=== PATIENT | female | born 1995 | race Two or more races ===

== ENCOUNTER 2020-02-17 18:50 | Emergency (ER) | payer OTHER ==
[~2020-02-17] VITALS: Ht 157.5 cm; Wt 53.5 kg
--- OUTSIDE RECORDS SUMMARY | ~2020-02-17 | XMS | Encounter Summary ---
Demographics + + + | Address | NEED ADDRESS | | | [place] [address] | + + + | Home Phone | | + + + | Preferred Language | Unknown | + + + | Marital Status | Single | + + + | Taoist Affiliation | Unknown | + + + | Race | Unknown | + + + | Ethnic Group | Unknown | + + + Author + + + | Author | [facility] | | | and [place] | + + + | Organization | [facility] | | | and [place] | + + + | Address | Unknown | + + + | Phone | Unavailable | + + + Support + + +---------+ + | Name | Relationship | Address | Phone | + + +---------+ + | Becky Torres | ECON | Unknown | | + + +---------+ + Care Team Providers + +------+ + | Care Wood Tool Maker Name | Role | Phone | + +------+ + PCP | Unavailable | + +------+ + Encounter Details +--------+ + + + + | Date | Type | Department | Care Team | Description | +--------+ + + + + | 02/19/ | Hospital | [facility] | Elmer Galeana | Gloria; | | 2018 | Encounter | [facility] JONATHAN Schmid MD [address] | Constipation, | | | | INTRA OP [address] | [place] [address] | unspecified | | | | [address]VD [place], [place] | [phone] | constipation type; | | | | [phone] | | Positive FIT (fecal | | | | [phone] | | immunochemical | | | | | | test); Epigastric | | | | | | abdominal pain; | | | | | | Bilious vomiting | | | | | | with nausea; | | | | | | Constipation; | | | | | | Gastroesophageal | | | | | | reflux disease, | | | | | | esophagitis presence | | | | | | not specified | +--------+ + + + + Social History + +-------+ +--------+------+ | Tobacco Use | Types | Packs/Day | Years | Date | | | | | Used | | + +-------+ +--------+------+ | Never Assessed | | | | | + +-------+ +--------+------+ + + + | Sex Assigned at | Date Recorded | | | | + + + | Not on file | | + + + documented as of this encounter Last Filed Vital Signs + + + + + | Vital Sign | Reading | Time Taken | Comments | + + + + + | Blood Pressure | 93/62 | 02/19/2018 10:31 AM | | | | | PDT | | + + + + + | Pulse | 73 | 02/19/2018 10:31 AM | | | | | PDT | | + + + + + | Temperature | 36.2 C (97.2 F) | 02/19/2018 10:31 AM | | | | | PDT | | + + + + + | Respiratory Rate | 16 | 02/19/2018 10:31 AM | | | | | PDT | | + + + + + | Oxygen Saturation | - | - | | + + + + + | Inhaled Oxygen | - | - | | | Concentration | | | | + + + + + | Weight | 55.8 kg (123 lb 0.3 | 02/19/2018 10:31 AM | | | | oz) | PDT | | + + + + + | Height | 157.5 cm (5' 2") | 02/19/2018 10:31 AM | | | | | PDT | | + + + + + | Body Mass Index | 22.5 | 02/19/2018 10:31 AM | | | | | PDT | | + + + + + documented in this encounter Discharge Summaries Elmer Galeana MD - 02/19/2018 9:59 AM PDT Discharge Summaries by Elmer Galeana MD at 02/19/18958 Author: Elmer Galeana MD Service: Gastroenterology Author Type: Physician Filed: 02/19/18958 Date of Service: 02/19/18958 Status: Signed Fixed Income Portfolio Manager: Elmer Galeana MD (Physician) [facility] Service: Gastroenterology Brief Post-op Discharge Note DISCHARGE DIAGNOSES: Active Problems: Melena Epigastric abdominal pain Positive FIT (fecal immunochemical test) Bilious vomiting with nausea Constipation Gastroesophageal reflux disease Resolved Problems: * No resolved hospital problems. * Procedures: Procedure(s): COLONOSCOPY W/ EGD This patient was transferred to the recovery area post-operatively and has experienced no d ifficulties at the time of my assessment. The patient is anticipated to continue to meet di scharge criteria per protocol as assessed by nursing and may be discharged at that time with designated caregiver. Disposition: Home Condition: Good Follow up: With GI clinic Medication List CONTINUE taking these medications albuterol 108 (90 Base) MCG/ACT inhaler Refills: 0 Commonly known as: PROVENTIL HFA;VENTOLIN HFA benzonatate 100 MG capsule Refills: 0 Commonly known as: TESSALON diphenhydrAMINE 25 mg capsule Refills: 0 Commonly known as: BENADRYL Naproxen Sodium 220 MG Caps Refills: 0 ondansetron 4 MG disintegrating tablet QTY: 30 tablet Refills: 11 For diagnoses: Epigastric abdominal pain, Bilious vomiting with nausea Commonly known as: ZOFRAN-ODT Take 1 tablet by mouth every 8 (eight) hours as needed for Nausea. pantoprazole 40 MG tablet QTY: 60 tablet Refills: 11 For diagnoses: Epigastric abdominal pain, Melena Commonly known as: PROTONIX Take 1 tablet by mouth 2 (two) times daily. predniSONE 20 MG tablet Refills: 0 Commonly known as: DELTASONE sucralfate 1 GM/10ML suspension QTY: 420 mL Refills: 0 Commonly known as: CARAFATE Take 10 mLs by mouth 4 (four) times daily for 30 days. SUDOGEST 12 HOUR PO Refills: 0 You might also be taking other medications not listed above. If you have questions about an y of your other medications, talk to the person who prescribed them or your Primary Care Pro vider. Elmer Galeana MD 02/19/2018 9:59 AM documented in th is encounter Medications at Time of Discharge + + + +---------+ + + | Medication | Sig | Dispensed | Refills | Start | End Date | | | | | | Date | | + + + +---------+ + + | albuterol | Inhale 2 puffs into | | 0 | 01/21/20 | | | (PROVENTIL HFA) 90 | the lungs every 4 | | | 18 | | | mcg/puff inhaler | (four) hours as | | | | | | | needed for Wheezing. | | | | | + + + +---------+ + + | benzonatate | Take 100 mg by mouth | | 0 | 01/21/20 | | | (TESSALON) 100 mg | 3 (three) times | | | 18 | | | capsule | daily as needed for | | | | | | | Cough. | | | | | + + + +---------+ + + | diphenhydrAMINE | Take 25 mg by mouth | | 0 | 01/21/20 | | | (BENADRYL) 25 MG | every 6 (six) hours | | | 18 | | | capsule | as needed for | | | | | | | Itching. | | | | | + + + +---------+ + + | Naproxen Sodium | Take 2 tablets by | | 0 | 01/21/20 | | | 220 MG CAPS | mouth as needed. | | | 18 | | + + + +---------+ + + | predniSONE | Take 20 mg by mouth | | 0 | 01/21/20 | | | (DELTASONE) 20 mg | daily with | | | 18 | | | tablet | breakfast. | | | | | + + + +---------+ + + | Pseudoephedrine | Take 1 tablet by | | 0 | 01/21/20 | | | HCl (SUDOGEST 12 | mouth 2 (two) times | | | 18 | | | HOUR PO) | daily. | | | | | + + + +---------+ + + documented as of this encounter H&P Notes Elmer Galeana MD - 02/19/2018 9:29 AM PDT Interval H&P Note by Elmer Galeana MD at 02/19/18928 Author: Elmer Galeana MD Service: Gastroenterology Author Type: Physician Filed: 02/19/18928 Date of Service: 02/19/18928 Status: Signed Fixed Income Portfolio Manager: Elmer Galeana MD (Physician) [facility] Service: Gastroenterology Pre-Operative History & Physical Interval Update There have been no significant clinical changes since the completion of the above H&P. [facility] physical assessment showed HP update PE: Normal appearance, alert and oriented X3 and r espiratory effort normal Elmer Galeana MD 02/19/2018 *CORE MEASURES REMINDER: If the patient has a known or suspected infection prior to surger y, please add diagnosis to the problem list (consider: Infection 136.9). Source Note Author: Elmer Galeana MD Service: (none) Author Type: Physician Filed: 02/19/18 0929 Date of Service: 02/10/18 1049 Status: Signed Fixed Income Portfolio Manager: Elmer Galeana MD (Physician) Documentation note to produce procedure H & P which will be updated on day of procedure. [facility] Service: Gastroenterology Pre-Operative History & Physical ? INDICATION: ICD-10-CM 1. Epigastric abdominal pain R10.13 2. Bilious vomiting with nausea R11.14 3. Melena K92.1 4. Gastroesophageal reflux disease without esophagitis K21.9 5. Constipation, unspecified constipation type K59.00 6. Positive FIT (fecal immunochemical test) R19.5 PROCEDURE: Colonoscopy w/EGD ? History Obtained From: Patient HISTORY OF PRESENT ILLNESS The patient is a 22 y.o. female 1995 who presents with Epigastric abdominal pain, Bili ous vomiting with nausea, Melena, Gastroesophageal reflux disease, esophagitis presence not specified, constipation, unspecified constipation type, Positive FIT (fecal immunochemical t est) REVIEW OF SYSTEMS Constitutional: Positive for appetite change and fatigue. Negative for activity change, chi lls, diaphoresis, fever, unexpected weight change and weight loss. HENT: Positive for hoarse voice. Negative for ear pain, mouth sores, nosebleeds, sore throa t, trouble swallowing and voice change. Eyes: Negative for pain, redness and visual disturbance. Respiratory: Negative for cough, choking, chest tightness, shortness of breath and wheezing . Cardiovascular: Negative for chest pain, palpitations and leg swelling. Gastrointestinal: Positive for abdominal distention, abdominal pain, anal bleeding, blood i n stool (per pt with every BM's ), heartburn, melena, nausea and vomiting. Negative for cons tipation, diarrhea, dysphagia and rectal pain. Endocrine: Positive for polydipsia. Negative for cold intolerance and heat intolerance. Genitourinary: Positive for frequency and urgency. Negative for difficulty urinating, dysur ia, hematuria and vaginal bleeding. Musculoskeletal: Negative for arthralgias, back pain, gait problem, joint swelling, myalgia s, muscle weakness, neck pain and neck stiffness. Skin: Negative for color change, rash and wound. Allergic/Immunologic: Positive for environmental allergies. Negative for food allergies and immunocompromised state. Neurological: Positive for dizziness and light-headedness. Negative for tremors, seizures, syncope, weakness and headaches. Hematological: Negative for adenopathy. Does not bruise/bleed easily. Psychiatric/Behavioral: Positive for dysphoric mood. Negative for agitation, behavioral pro blems, confusion, hallucinations and suicidal ideas. The patient is not nervous/anxious. Past Medical History Diagnosis Date Asthma exercise induced Gastroesophageal reflux disease H. pylori infection Past Surgical History Procedure Laterality Date COLONOSCOPY WITH EGD N/A 02/19/2018 Allergies Allergen Reactions Hydrocodone Hives Current Facility-Administered Medications on File Prior to Visit Medication Dose Route Frequency Provider Last Rate Last Dose midazolam (VERSED) 2 MG/2ML injection sodium chloride 0.9 % infusion Intravenous Continuous Elmer Galeana MD 30 mL/hr at 02/19/18 0903 [DISCONTINUED] lidocaine buffered 0.9% injection 0.5 mL 0.5 mL Intradermal Once Elmer Galeana MD Current Outpatient Prescriptions on File Prior to Visit Medication Sig Dispense Refill albuterol (PROVENTIL HFA;VENTOLIN HFA) 108 (90 Base) MCG/ACT inhaler Inhale 2 puffs int o the lungs every 4 (four) hours as needed for Wheezing. benzonatate (TESSALON) 100 MG capsule Take 100 mg by mouth 3 (three) times daily as nee ded for Cough. diphenhydrAMINE (BENADRYL) 25 mg capsule Take 25 mg by mouth every 6 (six) hours as nee ded for Itching. Naproxen Sodium 220 MG CAPS Take 2 tablets by mouth as needed. ondansetron (ZOFRAN-ODT) 4 MG disintegrating tablet Take 1 tablet by mouth every 8 (eig ht) hours as needed for Nausea. 30 tablet 11 pantoprazole (PROTONIX) 40 MG tablet Take 1 tablet by mouth 2 (two) times daily. 60 tab let 11 predniSONE (DELTASONE) 20 MG tablet Take 20 mg by mouth daily with breakfast. Pseudoephedrine HCl (SUDOGEST 12 HOUR PO) Take 1 tablet by mouth 2 (two) times daily. sucralfate (CARAFATE) 1 GM/10ML suspension Take 10 mLs by mouth 4 (four) times daily fo r 30 days. 420 mL 0 Family History Problem Relation Age of Onset Malig hypertherm Neg Hx Social History: History Smoking Status Never Smoker Smokeless Tobacco Never Used History Alcohol Use 0.6 oz/week 1 Standard drinks or equivalent per week History Drug Use Types: Marijuana PHYSICAL EXAM Vital Signs: Reviewed as recorded in nursing records on day of procedure LMP 01/17/2018 Ht 5'3" Wt 125lb BMI 22.14kg/m2? Gen: NAD, appears well-developed CV: Regular Lungs: CTAB, Effort normal and breath sounds normal, No respiratory distress. Abd: Non-tender, +BS, no masses or organomegaly, no rebound, no guarding Extremities: Within normal limits, no amputations, normal range of motion Head: Normocephalic. Mouth/Throat: Oropharynx is clear and moist and mucous membranes are normal Eyes: Conjunctivae and EOM are normal Skin: Warm, moist, intact Neuro: Intact and symmetric grossly Psychiatric: Normal mood and affect, behavior is normal, judgment and thought content mane l. PROBLEM LIST Patient Active Problem List Diagnosis Melena Epigastric abdominal pain Positive FIT (fecal immunochemical test) Bilious vomiting with nausea Constipation Gastroesophageal reflux disease ASSESSMENT & PLAN 1. Patient is a 22 y.o. female with above specified procedure planned for the indications n oted. 2. Medical conditions are currently stable and patient is felt appropriate for proceeding w ith procedure. Treatment Plan: EGD with COLONOSCOPY Plan for Sedation: Per Anesthesia Service Procedure Consent: The procedure, indications, limitations, alternatives available and pote ntial complications to include but not limited to bleeding, perforation, infection, and adve rse medication reaction was explained. Opportunity for questions provided and informed conse nt obtained. ASA Class: Per Anesthesia Service Mallampati Class: Per Anesthesia Service Discharge Plans: Discharge when appropriate discharge criteria met. Also per any procedure report recommendations. ? Date Physician Signature Updated today Elmer Galeana MD [facility] Gastroenterology 02/19/2018 Primary Care Physician: Marisol Gee *CORE MEASURES REMINDER: If the patient has a known or suspected infection prior to surgery , please add diagnosis to the problem list (consider: Infection 136.9). ? eena Galeana MD - 02/10/2018 10:49 AM PDTFormatting of this note might be different from the origina l. H&P (View-Only) by Elmer Galeana MD at 02/10/18 1045 Author: Elmer Galeana MD Service: (none) Author Type: Physician Filed: 02/19/1829 Date of Service: 02/10/181048 Status: Signed Fixed Income Portfolio Manager: Elmer Galeana MD (Physician) Documentation note to produce procedure H & P which will be updated on day of procedure. [facility] Service: Gastroenterology Pre-Operative History & Physical ? INDICATION: ICD-10-CM 1. Epigastric abdominal pain R10.13 2. Bilious vomiting with nausea R11.14 3. Melena K92.1 4. Gastroesophageal reflux disease without esophagitis K21.9 5. Constipation, unspecified constipation type K59.00 6. Positive FIT (fecal immunochemical test) R19.5 PROCEDURE: Colonoscopy w/EGD ? History Obtained From: Patient HISTORY OF PRESENT ILLNESS The patient is a 22 y.o. female 1995 who presents with Epigastric abdominal pain, Bili ous vomiting with nausea, Melena, Gastroesophageal reflux disease, esophagitis presence not specified, constipation, unspecified constipation type, Positive FIT (fecal immunochemical t est) REVIEW OF SYSTEMS Constitutional: Positive for appetite change and fatigue. Negative for activity change, chi lls, diaphoresis, fever, unexpected weight change and weight loss. HENT: Positive for hoarse voice. Negative for ear pain, mouth sores, nosebleeds, sore throa t, trouble swallowing and voice change. Eyes: Negative for pain, redness and visual disturbance. Respiratory: Negative for cough, choking, chest tightness, shortness of breath and wheezing . Cardiovascular: Negative for chest pain, palpitations and leg swelling. Gastrointestinal: Positive for abdominal distention, abdominal pain, anal bleeding, blood i n stool (per pt with every BM's ), heartburn, melena, nausea and vomiting. Negative for cons tipation, diarrhea, dysphagia and rectal pain. Endocrine: Positive for polydipsia. Negative for cold intolerance and heat intolerance. Genitourinary: Positive for frequency and urgency. Negative for difficulty urinating, dysur ia, hematuria and vaginal bleeding. Musculoskeletal: Negative for arthralgias, back pain, gait problem, joint swelling, myalgia s, muscle weakness, neck pain and neck stiffness. Skin: Negative for color change, rash and wound. Allergic/Immunologic: Positive for environmental allergies. Negative for food allergies and immunocompromised state. Neurological: Positive for dizziness and light-headedness. Negative for tremors, seizures, syncope, weakness and headaches. Hematological: Negative for adenopathy. Does not bruise/bleed easily. Psychiatric/Behavioral: Positive for dysphoric mood. Negative for agitation, behavioral pro blems, confusion, hallucinations and suicidal ideas. The patient is not nervous/anxious. Past Medical History Diagnosis Date Asthma exercise induced Gastroesophageal reflux disease H. pylori infection Past Surgical History Procedure Laterality Date COLONOSCOPY WITH EGD N/A 02/19/2018 Allergies Allergen Reactions Hydrocodone Hives Current Facility-Administered Medications on File Prior to Visit Medication Dose Route Frequency Provider Last Rate Last Dose midazolam (VERSED) 2 MG/2ML injection sodium chloride 0.9 % infusion Intravenous Continuous Elmer Galeana MD 30 mL/hr at 02/19/18 0903 [DISCONTINUED] lidocaine buffered 0.9% injection 0.5 mL 0.5 mL Intradermal Once Elmer Galeana MD Current Outpatient Prescriptions on File Prior to Visit Medication Sig Dispense Refill albuterol (PROVENTIL HFA;VENTOLIN HFA) 108 (90 Base) MCG/ACT inhaler Inhale 2 puffs int o the lungs every 4 (four) hours as needed for Wheezing. benzonatate (TESSALON) 100 MG capsule Take 100 mg by mouth 3 (three) times daily as nee ded for Cough. diphenhydrAMINE (BENADRYL) 25 mg capsule Take 25 mg by mouth every 6 (six) hours as nee ded for Itching. Naproxen Sodium 220 MG CAPS Take 2 tablets by mouth as needed. ondansetron (ZOFRAN-ODT) 4 MG disintegrating tablet Take 1 tablet by mouth every 8 (eig ht) hours as needed for Nausea. 30 tablet 11 pantoprazole (PROTONIX) 40 MG tablet Take 1 tablet by mouth 2 (two) times daily. 60 tab let 11 predniSONE (DELTASONE) 20 MG tablet Take 20 mg by mouth daily with breakfast. Pseudoephedrine HCl (SUDOGEST 12 HOUR PO) Take 1 tablet by mouth 2 (two) times daily. sucralfate (CARAFATE) 1 GM/10ML suspension Take 10 mLs by mouth 4 (four) times daily fo r 30 days. 420 mL 0 Family History Problem Relation Age of Onset Malig hypertherm Neg Hx Social History: History Smoking Status Never Smoker Smokeless Tobacco Never Used History Alcohol Use 0.6 oz/week 1 Standard drinks or equivalent per week History Drug Use Types: Marijuana PHYSICAL EXAM Vital Signs: Reviewed as recorded in nursing records on day of procedure LMP 01/17/2018 Ht 5'3" Wt 125lb BMI 22.14kg/m2? Gen: NAD, appears well-developed CV: Regular Lungs: CTAB, Effort normal and breath sounds normal, No respiratory distress. Abd: Non-tender, +BS, no masses or organomegaly, no rebound, no guarding Extremities: Within normal limits, no amputations, normal range of motion Head: Normocephalic. Mouth/Throat: Oropharynx is clear and moist and mucous membranes are normal Eyes: Conjunctivae and EOM are normal Skin: Warm, moist, intact Neuro: Intact and symmetric grossly Psychiatric: Normal mood and affect, behavior is normal, judgment and thought content mane l. PROBLEM LIST Patient Active Problem List Diagnosis Melena Epigastric abdominal pain Positive FIT (fecal immunochemical test) Bilious vomiting with nausea Constipation Gastroesophageal reflux disease ASSESSMENT & PLAN 1. Patient is a 22 y.o. female with above specified procedure planned for the indications n oted. 2. Medical conditions are currently stable and patient is felt appropriate for proceeding w [facility] procedure. Treatment Plan: EGD with COLONOSCOPY Plan for Sedation: Per Anesthesia Service Procedure Consent: The procedure, indications, limitations, alternatives available and pote ntial complications to include but not limited to bleeding, perforation, infection, and adve rse medication reaction was explained. Opportunity for questions provided and informed conse nt obtained. ASA Class: Per Anesthesia Service Mallampati Class: Per Anesthesia Service Discharge Plans: Discharge when appropriate discharge criteria met. Also per any procedure report recommendations. ? Date Physician Signature Updated today Elmer Galeana MD [facility] Gastroenterology 02/19/2018 Primary Care Physician: Marisol Gee *CORE MEASURES REMINDER: If the patient has a known or suspected infection prior to surgery , please add diagnosis to the problem list (consider: Infection 136.9). ? documented in th is encounter Miscellaneous Notes Op Note - Elmer Galeana MD - 02/19/2018 9:56 AM PDT Op Note by Elmer Galeana MD at 02/19/1856 Author: Elmer Galeana MD Service: Gastroenterology Author Type: Physician Filed: 02/19/1858 Date of Service: 02/19/18955 Status: Signed Fixed Income Portfolio Manager: Elmer Galeana MD (Physician) [facility] Service: Gastroenterology ENDOSCOPY SUITE PROCEDURE NOTE Esophagogastroduodenoscopy and Colonoscopy Procedure: 1) Esophagogastroduodenoscopy (EGD) with biopsy 2) Colonoscopy Indications: Epigastric pain, nausea, melena, positive FIT Referring Physician: Marisol Gee Consent: The benefits, risks (bleeding, perforation, infection and reaction to medication) , and alternatives to the procedure were discussed and informed consent was obtained from th e patient. Preparation: EKG, pulse, pulse oximetry, and blood pressure were monitored throughout the procedure. ASA Grade and Mallampati Classification per anesthesia service. Medications: See anesthesia documentation Procedure #1: EGD Procedure: The gastroscope was passed through the mouth under direct visualization and was advanced with ease to the 2nd portion of the duodenum. Retroflex exam performed in the fund us. The scope was withdrawn and the mucosa was carefully examined. The views were good. Ther e were no apparent complications. Findings: Esophagus: Within normal limits. Stomach: Within normal limits. Biopsy obtained for history. Duodenum: Within normal limits. Biopsy obtained for history. Impression: Normal EGD s/p biopsy Complications: None; patient tolerated the procedure well. EBL: Minimal Recommendations: Follow up pathology Proceed with colonoscopy Procedure #2: Colonoscopy Digital Rectal Exam: Normal sphincter tone. Procedure: The colonoscope was passed through the anus under direct visualization and was advanced to the terminal ileum / cecum, confirmed by appendiceal orifice and ileocecal branden ve. The scope was advanced with ease. The scope was withdrawn and the mucosa was carefully examined. Retroflex was performed in the rectum. The patient's toleration of the procedure w as good. There were no apparent complications. Findings: Preparation quality was: Good Cecal withdrawal time: >6 minutes Anus to cecum and terminal ileum intubated. TI normal for distal 10 cm. Normal colonoscop y including retroflexion in the rectum. Impression: Normal colonoscopy Complications: None; patient tolerated the procedure well. EBL: Minimal Recommendations: Continue current medications Follow up in GI clinic Elmer Galeana MD 02/19/2018 documented in th is encounter Plan of Treatment Not on filedocumented as of this encounter Procedures + +--------+ + + + | Procedure Name | Priori | Date/Time | Associated Diagnosis | Comments | | | ty | | | | + +--------+ + + + | HCG, URINE, QUAL | Routin | 02/19/2018 | | Results for this | | | e | 8:45 AM | | procedure are in the | | | | PDT | | results section. | + +--------+ + + + | TISSUE REQUEST FOR | Routin | 02/19/2018 | | Results for this | | PATHOLOGY (NON-ORD) | e | 12:00 AM | | procedure are in the | | | | PDT | | results section. | + +--------+ + + + documented in this encounter Results , Urine, Qual (02/19/2018 8:45 AM PDT) + + + + + + | Component | Value | Ref Range | Performed | Pathologist | | | | | At | Signature | + + + + + + | Preg Test, | NEGATIVEComment: Testing | | EXTERNAL | | | Ur | performed at [facility];[address] | [address] | | | | [address];[place], [place] | | | | | | [id number] | | | | + + + + + + + + | Specimen | + + | Urine specimen | | (specimen) | + + + +---------+ + + | Performing | Address | City/State/Zipcode | Phone Number | | Organization | | | | + +---------+ + + | EXTERNAL LAB | | | | + +---------+ + + Tissue Request For Pathology (02/19/2018 12:00 AM PDT) + + | Specimen | + + | Soft tissue sample | | (specimen) | + + + + + | Narrative | Performed At | + + + | SPECIMEN(S): A DUODENAL BIOPSY SPECIMEN(S): B GASTRIC- BIOPSY | EXTERNAL LAB | | SPECIMEN SOURCE: A. DUODENAL BIOPSY B. GASTRIC- BIOPSY CLINICAL | | | HISTORY: 02/19/2018 at 0933 H. Epigastric pain. MICROSCOPIC | | | DESCRIPTION: A-B. Histologic sections of all submitted blocks are | | | examined by light microscopy. These findings, together with the gross | | | examination, support the pathologic diagnosis. FINAL PATHOLOGIC | | | DIAGNOSIS: A. Duodenum, biopsies: - Unremarkable duodenal | | | mucosa, negative for active inflammation or significant villous | | | blunting. B. Stomach, biopsies: - Benign gastric mucosa | | | with vascular congestion. - Negative for active inflammation. | | | AMB:rrc:C2NR GROSS DESCRIPTION: Two specimens are received in two | | | containers labeled with the patient's name: A. The specimen is | | | received in formalin designated "duodenum" and consists of 2 pink-dan | | | tissue fragments which range in size from 0.2 to 0.3 cm in diameter, | | | all in A1. B. The specimen is received in formalin designated | | | "gastric" and consists of 3 pink-dan tissue fragments which range in | | | size from 0.1 to 0.3 cm in diameter, all in B1. JS:paul PERFORMING | | | LABORATORY: Professional interpretation and technical preparation was | | | performed by [facility] ([facility]), [facility], [facility] | | | [place] [address] ([facility] Counselor: Bruce | | | Les Burch; [facility]#: [id number]). Diagnostician: Sushma Sanchez MD | | | Pathologist Electronically Signed 02/20/2018 | | + + + + +---------+ + + | Performing | Address | City/State/Zipcode | Phone Number | | Organization | | | | + +---------+ + + | EXTERNAL LAB | | | | + +---------+ + + documented in this encounter Visit Diagnoses + + | Diagnosis | + + | Melena Blood in stool | + + | Constipation, unspecified constipation type | + + | Positive FIT (fecal immunochemical test) | + + | Epigastric abdominal pain Abdominal pain, epigastric | + + | Bilious vomiting with nausea | + + | Gastroesophageal reflux disease, esophagitis presence not specified | + + documented in this encounter
--- OUTSIDE RECORDS SUMMARY | ~2020-02-17 | XMS | Encounter Summary ---
Demographics + + + | Address | NEED ADDRESS | | | [place] [address] | + + + | Home Phone | | + + + | Preferred Language | Unknown | + + + | Marital Status | Single | + + + | Taoism Affiliation | Unknown | + + + | Race | Unknown | + + + | Ethnic Group | Unknown | + + + Author + + + | Author | [facility] | | | and [place] | + + + | Organization | [facility] | | | and [...] Team Providers + +------+ + | Care Presser All Around Name | Role | Phone | + +------+ + | Marisol Gee NP | PCP | | + +------+ + Encounter Details +--------+ + + + + | Date | Type | Department | Care Team | Description | +--------+ + + + + | 01/20/ | Orders Only | [facility] | Conversion | | | 2018 | | CONVERSION DEP [address] | Transaction, | | | | | [address] | Provider Unknown | | | | | [place] | [phone] | | | | | [address] | | | | | | [phone] | | | +--------+ + + + + Social [...] + + documented as of this encounter Plan of Treatment Not on filedocumented as of this encounter Visit Diagnoses Not on filedocumented in this encounter"
--- OUTSIDE RECORDS SUMMARY | ~2020-02-17 | XMS | Clinical Summary ---
Demographics + + + | Address | NEED ADDRESS | | | [place] [address] | + + + | Home Phone | | + + + | Preferred Language | Unknown | + + + | Marital Status | Single | + + + | Yazidi Affiliation | Unknown | + + + | Race | Unknown | + + + | Ethnic Group | Unknown | + + + Author + + + | Author | [facility] | | | and [place] | + + + | Organization | [facility] | | | and [...] Team Providers + +------+ + | Care Hairspring Cutter Name | Role | Phone | + +------+ + | Marisol Gee NP | PCP | | + +------+ + Allergies + + + + + + | Active Allergy | Reactions | Severity | Noted | Comments | | | | | Date | | + + + + + + | Hydrocodone | Hives | High | 11/18/19 | | | | | | 18 | | + + + + + + Medications + + + +---------+------+------+-------+ | Medication | Sig | Dispensed | Refills | Star | End | Statu | | | | | | t | Date | s | | | | | | Date | | | + + + +---------+------+------+-------+ | Pseudoephedrine | Take 1 tablet by | | 0 | 07/0 | | Activ | | HCl (SUDOGEST 12 | mouth 2 (two) times | | | 2/20 | | e | | HOUR PO) | daily. | | | 18 | | | + + + +---------+------+------+-------+ | predniSONE | Take 20 mg by mouth | | 0 | 07/0 | | Activ | | (DELTASONE) 20 mg | daily with | | | 2/20 | | e | | tablet | breakfast. | | | 18 | | | + + + +---------+------+------+-------+ | benzonatate | Take 100 mg by mouth | | 0 | 07/0 | | Activ | | (TESSALON) 100 mg | 3 (three) times | | | 2/20 | | e | | capsule | daily as needed for | | | 18 | | | | | Cough. | | | | | | + + + +---------+------+------+-------+ | diphenhydrAMINE | Take 25 mg by mouth | | 0 | 07/0 | | Activ | | (BENADRYL) 25 MG | every 6 (six) hours | | | 2/20 | | e | | capsule | as needed for | | | 18 | | | | | Itching. | | | | | | + + + +---------+------+------+-------+ | albuterol | Inhale 2 puffs into | | 0 | 07/0 | | Activ | | (PROVENTIL HFA) 90 | the lungs every 4 | | | 2/20 | | e | | mcg/puff inhaler | (four) hours as | | | 18 | | | | | needed for Wheezing. | | | | | | + + + +---------+------+------+-------+ | Naproxen Sodium | Take 2 tablets by | | 0 | 07/0 | | Activ | | 220 MG CAPS | mouth as needed. | | | 220 | | e | | | | | | 18 | | | + + + +---------+------+------+-------+ Active Problems +---------+ + | Problem | Noted Date | +---------+ + | Melena | 12/18/2017 | +---------+ + + + | Overview: Added automatically from request for surgery [id number] | + + + + + | Epigastric abdominal pain | 12/18/2017 | + + + + + | Overview: Added automatically from request for surgery [id number] | + + + + + | Positive FIT (fecal immunochemical test) | 12/18/2017 | + + + + + | Overview: Added automatically from request for surgery [id number] | + + + + + | Bilious vomiting with nausea | 12/18/2017 | + + + + + | Overview: Added automatically from request for surgery [id number] | + + + + + | Constipation | 12/18/2017 | + + + + + | Overview: Added automatically from request for surgery [id number] | + + + + + | Gastroesophageal reflux disease | 12/18/2017 | + + + + + | Overview: Added automatically from request for surgery [id number] | + + Family History + + +------+ + | Medical History | Relation | Name | Comments | + + +------+ + | Malig hypertherm | Neg Hx | | | + + +------+ + Social History + +-------+ +--------+------+ | Tobacco Use | Types | Packs/Day | Years | Date | | | | | Used | | + +-------+ +--------+------+ | Never Smoker | | | | | + +-------+ +--------+------+ + + + | Sex Assigned at | Date Recorded | | | | + + + | Not on file | | + + + Last Filed Vital Signs + + + [...] | | + + + + + Plan of Treatment + + + + + | Health Maintenance | Due Date | Last | Comments | | | | Done | | + + + + + | Hepatitis C | | | | | Screening | 3 | | | + + + + + | Medication | | | | | Management | 3 | | | + + + + + | Vaccine: HPV (1 - | | | | | 2-dose series) | 4 | | | + + + + + | Vaccine: | | | | | Dtap/Tdap/Td (1 - | 2 | | | | Tdap) | | | | + + + + + | Cervical Cancer | | | | | Screening (Pap) | 4 | | | + + + + + | Med Mgmt: BUN | | 01/21/20 | | | | 9 | 18 | | + + + + + | Med Mgmt: Cr | | 01/21/20 | | | | 9 | 18 | | + + + + + | Vaccine: Influenza | | | | | (#1) | 0 | | | + + + + + Results Not on filefrom Last 3 Months
--- OUTSIDE RECORDS SUMMARY | ~2020-02-17 | XMS | Encounter Summary ---
Demographics + + + | Address | NEED ADDRESS | | | [place] [address] | + + + | Home Phone | | + + + | Preferred Language | Unknown | + + + | Marital Status | Single | + + + | Lutheran Affiliation | Unknown | + + + | Race | Unknown | + + + | Ethnic Group | Unknown | + + + Author + + + | Author | [facility] | | | and [place] | + + + | Organization | [facility] | | | [...] Team Providers + +------+ + | Care Director Of Instruction Name | Role | Phone | + +------+ + PCP | Unavailable | + +------+ + Encounter Details +--------+ + + + + | Date | Type | Department | Care Team | Description | +--------+ + + + + | 11/17/ | Emergency | [facility] | Pepe Solorio, | Gastritis, presence | | 2018 | | MEDICAL CENTER | MD Gian FARFAN | of bleeding | | | | EMERGENCY [facility]IMMY | [place] [address] | unspecified, | | | | [address] | [phone] | unspecified | | | | [place] | | chronicity, | | | | [address] | | unspecified | | | | [phone] | | gastritis type | +--------+ + + + + Social [...] + + + | Blood Pressure | 109/73 | 11/17/2017 12:45 PM | | | | | PDT | | + + + + + | Pulse | 71 | 11/17/2017 12:45 PM | | | | | PDT | | + + + + + | Temperature | 36.7 C (98 F) | 11/17/2017 12:45 PM | | | | | PDT | | + + + + + | Respiratory Rate | 16 | 11/17/2017 12:45 PM | | | | | PDT | | + + + + + | Oxygen Saturation | - | - | | + + + + + | Inhaled Oxygen | - | - | | | Concentration | | | | + + + + + | Weight | 57.2 kg (126 lb) | 11/17/2017 12:45 PM | | | | | PDT | | + + + + + | Height | 157.5 cm (5' 2") | 11/17/2017 12:45 PM | | | | | PDT | | + + + + + | Body Mass Index | 23.05 | 11/17/2017 12:45 PM | | | | | PDT | | + + + + + documented in this encounter Medications at Time of Discharge + + + +---------+ + + | Medication | Sig | Dispensed | Refills | Start | End Date | | | | | | Date | | + + + +---------+ + + | sucralfate | Take 10 mLs by mouth | 420 mL | 0 | 11/18/19 | | | (CARAFATE) 1 g/10 mL | 4 (four) times | | | 18 | 8 | | suspension | daily for 30 days. | | | | | + + + +---------+ + + documented as of this encounter ED Notes Pepe Solorio MD - 11/17/2017 11:42 AM PDTFormatting of this note might be different fro m the original. ED Provider Notes by Pepe Solorio MD at 11/17/17 1142 Author: Pepe Solorio MD Service: (none) Author Type: Physician Filed: 11/19/17 0751 Date of Service: 11/17/17 1142 Status: Signed Tray Checker: Pepe Solorio MD (Physician) [facility] Department of Emergency Medicine 11:42 AM History of Present Illness Patient Identification Raeann Andre is a 22 y.o. female. Patient information was obtained from patient. History/Exam limitations: none. Patient presented to the Emergency Department by: Car Chief Complaint Chief Complaint Patient presents with Abdominal Pain for 3 days Emesis This is a 22 y.o. female with chief complaint of vomiting (3x since midnight). Onset of sy mptoms was 4-5 days ago, with an intermittent course since that time. The symptoms are curr ently described to be of mild severity. Patient describes the quality and location of the sy mptoms as: "white and frothy vomit." The patient states that she thinks her H. Pylori infect ion came back. She says that the vomiting and pain is similar to when she had a H. Pylori in fection about 6 years ago. Back then, she was treated with antibiotics and omeprazole by Dr. Palacio. She states that she has never had an endoscopy. Pt also complains of abdominal pain. Pt denies diarrhea, fever, chills, or any other symptoms at this time. No care was re ported prior to arrival. PCP: Per Pt None Past Medical History Diagnosis Date H. pylori infection History reviewed. No pertinent surgical history. Prior to Admission medications Not on File Allergies Allergen Reactions Hydrocodone Hives Social History Social History Marital status: Single Spouse name: N/A Number of children: N/A Years of education: N/A Occupational History Not on file. Social History Main Topics Smoking status: Never Smoker Smokeless tobacco: Never Used Alcohol use No Drug use: Yes Types: Marijuana Sexual activity: Not on file Other Topics Concern Not on file Social History Narrative No narrative on file History reviewed. No pertinent family history. Review of Systems Review of Systems Constitutional: Negative for chills and fever. Gastrointestinal: Positive for abdominal pain and vomiting. Negative for diarrhea. All other systems reviewed and are negative. Physical Exam BP 113/59 | Pulse 64 | Temp 98 F (36.7 C) (Oral) | Resp 16 | Ht 1.575 m (5' 2") | Wt 57.2 kg (126 lb) | LMP 11/10/2017 | SpO2 97% | BMI 23.05 kg/m Vitals: WNL Pulse Oximetry Interpretation: Normal General: Alert, in no acute distress, non-toxic Head: Normocephalic. Atraumatic. Eyes: Normal inspection, pupils equal and round, non-icteric, EOM full ENT: Ears and nose normal external inspection Pharynx normal Moist mucous membranes, pink appearing Neck: Normal inspection Supple No lymphadenopathy. No JVD CVS: Rate and rhythm normal No Bruits. No murmurs Respiratory: Breath sounds normal bilaterally, normal chest rise and fall, no obvious traum a Abdomen: Mild epigastric tenderness with no rebound. Soft, non-distended, Bowel sounds unre markable. No masses. No hernias. Rectal deferred Back: No point tenderness. Moves without difficulty Extremities: Moves all extremities without pain or restriction. No obvious deformity. Well perfused. No calf tenderness No leg swelling Skin: Color normal. Warm and dry. No rash noted Neuro: No gross motor/sensory deficits noted. No facial asymmetry Medical Decision Making and Emergency Department Course ED Department Course 11:42 AM Pt presents to the ED complaining of vomiting. On exam, pt has mild epigastric te nderness with no rebound. I feel that the list of possible emergent diagnoses that the patie nt requires an evaluation for includes (but is not limited to) gastritis, gastroenteritis, f oodborne illness, vs other. Will test the patient with PO liquids and give her medications and then reevaluate. 12:38 PM Pt rechecked and updated. She is able to tolerate the medications PO. She is still having some abdominal discomfort. I have discussed my clinical impression and treatment veena n with the pt. Patient is stable at this time and does not meet admission criteria. We have specifically discussed the signs and symptoms that would constitute the need for an immediat e return to the ED, the importance of continued outpatient f/u and the importance of complia nce with the d/c instructions. I have answered any questions that the pt has to the best of my ability. Patient will get a Rx for Zofran, Prilosec, and Carafate. I have discussed the BP measurements recorded during this stay with the patient and they wi ll follow up with their primary care physician if necessary. Medications sucralfate (CARAFATE) 1 GM/10ML suspension 1 g (1 g Oral Given 11/17/17 1155) ondansetron (ZOFRAN) tablet 4 mg (4 mg Oral Given 11/17/17 1154) pantoprazole (PROTONIX) EC tablet 40 mg (40 mg Oral Given 11/17/17 1154) Vitals: 11/17/17 1143 11/17/17 1245 BP: 113/59 109/73 Pulse: 64 71 Resp: 16 16 Temp: 98 F (36.7 C) TempSrc: Oral SpO2: 97% 97% Weight: 57.2 kg (126 lb) Height: 1.575 m (5' 2") Records Reviewed Old medical records. Nursing notes. No previous [facility] ED visits Laboratory Evaluation Results None I personally reviewed the lab results and they have been posted to the chart. Pertinent po sitive and negative findings have been addressed appropriately. Radiology and EKG Evaluation Imaging Results None ED Diagnosis Final diagnosis Gastritis, presence of bleeding unspecified, unspecified chronicity, unspecified gastritis type Disposition: ED Disposition ED Disposition Condition Comment Discharge Stable Follow-up Information Follow up With Specialties Details Why Contact Info Pepe Colon IV, MD Gastroenterology Schedule an appointment as soon as possible for a vi sit in 1 day For follow up [facility] [address] [facility] [address] [facility] Emergency Department in [place] Emergency Medicine Go to If symptoms worsen [address] [facility] [address] Discharge Medications: Discharge Medication List as of 11/17/2017 12:43 PM START taking these medications Details omeprazole (PRILOSEC) 20 MG capsule Take 1 capsule by mouth daily., Starting 11/17/2017, Until Sat11/17/2018, Print ondansetron (ZOFRAN) 4 MG tablet Take 1 tablet by mouth every 8 (eight) hours as needed for Nausea (or vomiting) for up to 7 days., Starting 11/17/2017, Until Sat11/24/2017, Print sucralfate (CARAFATE) 1 GM/10ML suspension Take 10 mLs by mouth 4 (four) times daily for 30 days., Starting 11/17/2017, Until Sat12/17/2017, Print Pepe Solorio MD Procedures Additional Documentation Procedures Attending Provider Note: Pepe Mojica MD personally performed the services described in this documentation, as scribed by Billy Rucker in my presence, and it is both accurate and complete. Chart Reviewed and Completed: 11/17/2017 12:52 PM Scribe: I Paul Rubi, scribing for and in the presence of Pepe Solorio MD. Signed by: Paul Rubi 11/17/2017 12:52 PM Pepe Solorio MD 11/19/17 0751 documented in this e ncounter Plan of Treatment Not on filedocumented as of this encounter Visit Diagnoses + + | Diagnosis | + + | Gastritis, presence of bleeding unspecified, unspecified chronicity, unspecified | | gastritis type | + + documented in this encounter
--- OUTSIDE RECORDS SUMMARY | ~2020-02-17 | XMS | Encounter Summary ---
Demographics + + + | Address | NEED ADDRESS | | | [place] [address] | + + + | Home Phone | | + + + | Preferred Language | Unknown | + + + | Marital Status | Single | + + + | Zoroastrian Affiliation | Unknown | + + + | Race | Unknown | + + + | Ethnic Group | Unknown | + + + Author + + + | Author | [facility] | | | and [place] | + + + | Organization | [facility] | | | and [...] Providers + +------+ + | Care Wood Car Builder Name | Role | Phone | + +------+ + | Marisol Gee NP | PCP | | + +------+ + Encounter Details +--------+ + + + + | Date | Type | Department | Care Team | Description | +--------+ + + + + | 11/17/ | Orders Only | [facility] | Pepe Solorio, | | | 2018 | | CONVERSION DEP [address] | MD [address] | | | | | [address] | [place] [address] | | | | | [place], [place] | [phone] | | | | | [address] | | | | | | [phone] | | | +--------+ + + + [...]
--- OUTSIDE RECORDS SUMMARY | ~2020-02-17 | XMS | Encounter Summary ---
Demographics + + + | Address | NEED ADDRESS | | | [place] [address] | + + + | Home Phone | | + + + | Preferred Language | Unknown | + + + | Marital Status | Single | + + + | Orthodoxy Affiliation | Unknown | + + + | Race | Unknown | + + + | Ethnic Group | Unknown | + + + Author + + + | Author | [facility] | | | and [place] | + + + | Organization | [facility] | | | and [...] Team Providers + +------+ + | Care Care Assistant Name | Role | Phone | + +------+ + PCP | Unavailable | + +------+ + Encounter Details +--------+ + + + + | Date | Type | Department | Care Team | Description | +--------+ + + + + | 01/20/ | Hospital | [facility] | Conversion | | | 2018 | Encounter | [facility] | Transaction, | | | | | CLINIC [address] | Provider Unknown | | | | | [address] [place], [place] | | | | | | [address] | (Fax) | | | | | [phone] | | | +--------+ + + + [...] + + + | Blood Pressure | 133/78 | 01/20/2018 2:56 PM | | | | | PDT | | + + + + + | Pulse | 65 | 01/20/2018 2:56 PM | | | | | PDT | | + + + + + | Temperature | - | - | | + + + + + | Respiratory Rate | 16 | 01/20/2018 2:56 PM | | | | | PDT | | + + + + + | Oxygen Saturation | - | - | | + + + + + | Inhaled Oxygen | - | - | | | Concentration | | | | + + + + + | Weight | 55.8 kg (123 lb 0.3 | 01/20/2018 2:56 PM | | | | oz) | PDT | | + + + + + | Height | 157.5 cm (5' 2") | 01/20/2018 2:56 PM | | | | | PDT | | + + + + + | Body Mass Index | 22.5 | 01/20/2018 2:56 PM | | | | | PDT [...] + + documented as of this encounter Procedure Notes Fabi White, Provider Unknown - 01/20/2018 2:57 PM PDTFormatting of this note m ight be different from the original. Pre-Procedure Instructions by Norma Barahona RN at 01/20/181456 Author: Norma Barahona RN Service: Anesthesiology Author Type: Registered Nurse Filed: 01/20/181457 Date of Service: 01/20/181456 Status: Signed Grievance And Appeals Specialist: Norma Barahona RN (Registered Nurse) Currently on medication for chest infection. Procedure in a month. Patient to call Dr. Bijan zapien's office if illness is still present the week prior to the procedure. docume nted in this encounter Plan of Treatment Not on filedocumented as of this encounter Procedures + +--------+ + + + | Procedure Name | Priori | Date/Time | Associated Diagnosis | Comments | | | ty | | | | + +--------+ + + + | HEMOGLOBIN AND | Routin | 01/20/2018 | | Results for this | | HEMATOCRIT | e | 2:59 PM | | procedure are in the | | | | PDT | | results section. | + +--------+ + + + | BASIC METABOLIC | Routin | 01/20/2018 | | Results for this | | PANEL | e | 2:59 PM | | procedure are in the | | | | PDT | | results section. | + +--------+ + + + documented in this encounter Results Hemoglobin and Hematocrit (01/20/2018 2:59 PM PDT) + + + + + + | Component | Value | Ref Range | Performed | Pathologist | | | | | At | Signature | + + + + + + | Hemoglobin | 13.4 | 11.3 - 15.5 | EXTERNAL | | | | | g/dL | LAB | | + + + + + + | Hematocrit, | 38.6Comment: Testing | 34.0 - 46.0 % | EXTERNAL | | | POC | performed at [facility];[address] | | LAB | | | | [address];[place], [place] | | | | | | [address] | | | | + + + + + + + + | Specimen | + + | | + + + +---------+ + + | Performing | Address | City/State/Zipcode | Phone Number | | Organization | | | | + +---------+ + + | EXTERNAL LAB | | | | + +---------+ + + Basic Metabolic Panel (01/20/2018 2:59 PM PDT) + + + + + + | Component | Value | Ref Range | Performed | Pathologist | | | | | At | Signature | + + + + + + | Na | 138 | 135 - 145 | EXTERNAL | | | | | mmol/L | LAB | | + + + + + + | K | 3.9 | 3.5 - 4.9 | EXTERNAL | | | | | mmol/L | LAB | | + + + + + + | Cl | 101 | 99 - 109 mmol/L | EXTERNAL | | | | | | LAB | | + + + + + + | CO2 | 28 | 23 - 32 mmol/L | EXTERNAL | | | | | | LAB | | + + + + + + | Anion Gap | 13 | 5 - 20 mmol/L | EXTERNAL | | | | | | LAB | | + + + + + + | Glucose, | 94 | 65 - 99 mg/dL | EXTERNAL | | | Fasting | | | LAB | | + + + + + + | BUN | 9 | 8 - 25 mg/dL | EXTERNAL | | | | | | LAB | | + + + + + + | Creatinine | 0.6 | 0.50 - 1.00 | EXTERNAL | | | | | mg/dL | LAB | | + + + + + + | BUN/Creatin | 15 | | EXTERNAL | | | ine Ratio | | | LAB | | + + + + + + | Calcium | 9.5 | 8.5 - 10.5 | EXTERNAL | | | | | mg/dL | LAB | | + + + + + + | Estimated | >60Comment: GFR <60: | mL/min/1.73m2 | EXTERNAL | | | GFR | CHRONIC KIDNEY DISEASE, | | LAB | | | | IF FOUND OVER A 3 MONTH | | | | | | PERIOD.GFR <15: KIDNEY | | | | | | FAILURE.FOR | | | | | | AMERICANS, MULTIPLY THE | | | | | | CALCULATED GFR BY | | | | | | 1.210.This eGFR is | | | | | | calculated using the | | | | | | MDRD IDMS traceable | | | | | | equation.Testing | | | | | | performed at [facility], [address] | | | | | | [facility], | | | | | | [place] [address] | | | | + + + + + + + + | Specimen | + + | Blood specimen | | (specimen) | + + + +---------+ + + | Performing | Address | City/State/Zipcode | Phone Number | | Organization | | | | + +---------+ + + | EXTERNAL LAB | | | | + +---------+ + + documented in this encounter Visit Diagnoses Not on filedocumented in this encounter
[2020-02-17] MEDS ORDERED: PRENATAL TABLE1 EACH PO (19:16)
[2020-02-17] MEDS ORDERED: VENTOLIN HFA18 GM INH (19:17)
== END 2020-02-17 22:24 | disposition home or self-care (01) ==
LOC: ED 18:50
DX: O99.282 Endocrine, nutritional and metabolic diseases complicating pregnancy, second trimester (principal); E86.0 Dehydration; O99.89 Other specified diseases and conditions complicating pregnancy, childbirth and the puerperium; R10.9 Unspecified abdominal pain; O99.511 Diseases of the respiratory system complicating pregnancy, first trimester; J45.909 Unspecified asthma, uncomplicated; O99.332 Smoking (tobacco) complicating pregnancy, second trimester; F17.200 Nicotine dependence, unspecified, uncomplicated; Z88.5 Allergy status to narcotic agent; Z79.899 Other long term (current) drug therapy; Z3A.18 18 weeks gestation of pregnancy
CPT/HCPCS: 80053; 81001; 83735; 85025; 99284

== ENCOUNTER 2020-07-12 08:55 | Inpatient (IN) | payer OTHER ==
[~2020-07-12] VITALS: Ht 157.5 cm; Wt 62.6 kg
[~2020-07-12 08:55] MED LIST: PRENATAL TABLE1 EACH PO; VENTOLIN HFA18 GM INH
--- NOTE | 2020-07-12 10:11 | NUR ---
RAPID SWAB COLLECTED AND DELIVERED TO LAB
--- NOTE | 2020-07-12 11:16 | PR ---
[facility] [address] [place], [place] [address] Signed Progress Notes IP Datetime Report Generated by CPN: 07/12/2020 11:16 PROGRESS NOTES: [id number] Impression: Normal Progression of Labor; Reassuring Heart Rate Procedures: Artificial ROM; Sterile Vag Exam Plan: Continue Present Management; Anticipate Vaginal Delivery Informed Consent Obtain: Vaginal Delivery VITAL SIGNS: [id number] Vital Signs: Reviewed; Within Normal Limits EXAM: [id number] Dilatation: 4.0 Effacement: 50 Station: -2 MEMBRANES: [id number] Comments: Pt seen and examined. Doing well. Discussed anticipated course of labor and recommended amniotomy. AROM performed without difficulty for scant clear fluid. Small amount of dark brown discharge. Pt and fetus tolerated procedure well. Expectant management w/ expected . All questions answered FETUS A: [id number] FHR Baseline: 135 Variability: Moderate 6-25bpm Accelerations: 15X15 Decelerations: None Presentation: Vertex Comments on Fetus A: No evidence of metabolic acidosis FETUS B: [id number] Signing Physician: Constantin Lee DO Copies: ~ *Electronically Signed* 07/12/20 1116 CONSTANTIN LEE DO PATIENT NAME: DELMAR VINSON PROGRESS NOTE DATE OF : 89 PHYSICIAN: CONSTANTIN LEE DO RPT #: [id number] REPORT IS CONFIDENTIAL AND NOT TO BE RELEASED WITHOUT AUTHORIZATION
--- NOTE | 2020-07-12 13:02 | PR ---
[facility] [address] [facility] [place], [place] [address] Signed Progress Notes IP Datetime Report Generated by CPN: 07/12/2020 13:02 PROGRESS NOTES: [id number] Impression: Normal Progression of Labor; Reassuring Heart Rate Procedures: Sterile Vag Exam Plan: Continue Present Management; Anesthesia Consult; Anticipate Vaginal Delivery Informed Consent Obtain: Vaginal Delivery VITAL SIGNS: [id number] Vital Signs: Reviewed; Within Normal Limits EXAM: [id number] Dilatation: 5.0 Effacement: 90 Station: -1 MEMBRANES: [id number] Comments: Pt seen and examined. Feeling more pressure. Desires epidural and anesthesia notified and en route. Reviewed anticipated course of labor/delivery, and all questions answered. FETUS A: [id number] FHR Baseline: 135 Variability: Moderate 6-25bpm Accelerations: 15X15 Decelerations: None Presentation: Vertex Comments on Fetus A: No evidence of metabolic acidosis FETUS B: [id number] Signing Physician: Constantin Lee DO Copies: ~ *Electronically Signed* 07/12/20 1302 CONSTANTIN LEE DO PATIENT NAME: DELMAR VINSON SANJUANA PROGRESS NOTE DATE OF : [birth year] PHYSICIAN: CONSTANTIN LEE DO RPT #: [id number] REPORT IS CONFIDENTIAL AND NOT TO BE RELEASED WITHOUT AUTHORIZATION
--- NOTE | 2020-07-12 14:42 | PR ---
[facility] [address] [facility] [place], [place] [address] Signed Progress Notes IP Datetime Report Generated by CPN: 07/12/2020 14:42 PROGRESS NOTES: [id number] Impression: Normal Progression of Labor; Reassuring Heart Rate Procedures: Sterile Vag Exam Plan: Continue Present Management; Anticipate Vaginal Delivery Informed Consent Obtain: Vaginal Delivery VITAL SIGNS: [id number] Vital Signs: Reviewed; Within Normal Limits EXAM: [id number] Dilatation: 8.0 Effacement: 90 Station: 0 MEMBRANES: [id number] Comments: Pt seen and evaluated. Doing well. Comfortable w/ epidural. Variable and early decelerations noted on FHT. Pt now 9cm per RN. Anticipate soon. FETUS A: [id number] FHR Baseline: 135 Variability: Moderate 6-25bpm Accelerations: 15X15 Decelerations: None Presentation: Vertex Comments on Fetus A: No evidence of metabolic acidosis FETUS B: [id number] Signing Physician: Constantin Lee DO Copies: ~ *Electronically Signed* 07/12/20 1442 CONSTANTIN LEE DO PATIENT NAME: DELMAR VINSON SANJUANA PROGRESS NOTE DATE OF : [birth year] PHYSICIAN: CONSTANTIN LEE DO RPT #: [id number] REPORT IS CONFIDENTIAL AND NOT TO BE RELEASED WITHOUT AUTHORIZATION
--- NOTE | 2020-07-13 12:33 | PR ---
[facility] [address] [facility] [place], [place] [address] Signed PP Progress Notes Datetime Report Generated by CPN: 07/13/2020 12:33 SUBJECTIVE: [id number] Pain: Within Normal Limits Nausea/Vomiting: Denies Flatus: Yes Vital Signs: [id number] Vital Signs: Reviewed EXAM: Ongoing Cardiovascular: Normal Respiratory: Normal Abdomen/Uterus: Normal Lochia: Normal CVA Tenderness: Normal Extremities: Normal Incision: Not Applicable Progress: Normal Exam Comments: Fundus firm U-2 nontender IMPRESSION/PLAN/PROCEDURES: [id number] Impression: Normal Progression Plan: Discharge Progress Notes: Pt seen and examined. Doing well. Ambulating, voiding, and tolerating full diet. Pain and lochia minimal. . No concerns; desires d/c home today. Planning nexplanon for pp contraception. D/C instructions reviewed in detail. F/U 2 wks Signing Physician: Constantin Lee DO Copies: ~ *Electronically Signed* 07/13/20 1233 CONSTANTIN LEE DO PATIENT NAME: DELMAR VINSONLLY PROGRESS NOTE DATE OF : [birth year] PHYSICIAN: CONSTANTIN LEE DO RPT #: [id number] REPORT IS CONFIDENTIAL AND NOT TO BE RELEASED WITHOUT AUTHORIZATION
--- NOTE | 2020-07-14 12:00 | PATH ---
[facility] [address] [place], [place] [address] Signed SPECIMEN(S): A PLACENTA SPECIMEN SOURCE: A. PLACENTA CLINICAL HISTORY: Mother's age: 27. OB history: A0. Gestational age: 38 and 6. score: 8/9. Rh O positive (Rhogam no). Antibody screen: Negative. Maternal serologies: Rubella immune, RPR NR, hepatitis screen negative, GBS negative. Specific issues of concern: Baby IUGR. FINAL PATHOLOGIC DIAGNOSIS: Placenta, third trimester: - Nuñez placenta, small for stated gestational age of 38 weeks, 6 days. - Umbilical cord: Three-vessel umbilical cord with no histopathologic abnormality. - membranes: Acute chorioamnionitis. - Placental disc: Chorionic villi with mature villous morphology, chronic villitis of unknown etiology, lymphohistiocytic intervillositis. - See Comment. COMMENT: The degree of maternal inflammatory response corresponds to stage 2, grade 1. Foci of chronic villitis are present within the placental disc. No viral cytopathic changes or infectious organisms are identified on HE stain. Correlation with clinical findings is recommended. NAL:cml:C2NR MICROSCOPIC EXAMINATION: Histologic sections of all submitted blocks are examined by light microscopy. These findings, together with the gross examination, support the pathologic diagnosis. GROSS DESCRIPTION: The specimen, labeled "DA, placenta," is received fresh and placed in formalin and consists of a nuñez discoid placenta with the following parameters: Umbilical cord: Insertion eccentric, measurement 16 x 1.2 cm; trivascular. Cord coiling index (per 10 cm): Five. Lesions: Not grossly identified. Membranes: Insertion site: Marginal, dan/translucent, rupture site unremarkable. Intact. Other: Not grossly identified. Chorionic Plate: Normal radiating vascular pattern, blue-purple and shiny. PATIENT NAME: DELMAR VINSON PATHOLOGY DATE OF : [birth year] REPORT #: [id number] PHYSICIAN: PAU PATHOLOGY PCP: JESÚS ROBERTSON NP REPORT IS CONFIDENTIAL AND NOT TO BE RELEASED WITHOUT AUTHORIZATION [facility] [address] [place], [place] [address] Signed Lesions: Not grossly identified. Other: Not grossly identified. Maternal Surface: Normal cotyledons, intact. Lesions: Not grossly identified. Measurement: 23 x 13.5 x 1.8 cm. Weight (trimmed): 352 grams. Cut Surface: Maroon and spongy. Lesions: Not grossly identified. Basal plate fibrin measures 0.1 cm in thickness. Other Findings: Not grossly identified. Cassette Summary: (A1) Membranes and umbilical cord (A2) Placenta parenchyma (A3) Placenta parenchyma (A4) Placenta parenchyma JS (under the direct supervision of a pathologist) The Gross Description was prepared using a voice recognition system. The report was reviewed for accuracy; however, sound-alike word errors, addition and/or deletions may occur. If there is any question about this report, please contact Client Services. PERFORMING LABORATORY: The technical component was performed by [facility] [address] (Pizza Baker: Sushma Sanchez MD; CLIA# [id number]).Professional interpretation was performed by [facility], [address] [address] (CLIA# [id number]). Diagnostician: Lorena Diaz MD Pathologist Electronically Signed 07/14/2020 Copies: ~ PATIENT NAME: DELMAR VINSON SANJUANA PATHOLOGY DATE OF : [birth year] REPORT #: [id number] PHYSICIAN: PAU YEN PCP: JESÚS ROBERTSON NP REPORT IS CONFIDENTIAL AND NOT TO BE RELEASED WITHOUT AUTHORIZATION
== END 2020-07-13 19:20 | disposition home or self-care (01) | DRG 806 ==
LOC: FBCO 08:55 → FBC 09:10
PROVIDERS: ADMIT Obstetrics & Gynecology; ATTEND Obstetrics & Gynecology
PROC: 10E0XZZ Delivery of Products of Conception, External Approach (ICD-10-PCS; principal; 2020-07-12)
PROC: 0HQ9XZZ Repair Perineum Skin, External Approach (ICD-10-PCS; 2020-07-12)
PROC: 0UQMXZZ Repair Vulva, External Approach (ICD-10-PCS; 2020-07-12)
PROC: 10907ZC Drainage of Amniotic Fluid, Therapeutic from Products of Conception, Via Natural or Artificial Opening (ICD-10-PCS; 2020-07-12)
PROC: 00HU33Z Insertion of Infusion Device into Spinal Canal, Percutaneous Approach (ICD-10-PCS; 2020-07-12)
PROC: 3E0R3BZ Introduction of Anesthetic Agent into Spinal Canal, Percutaneous Approach (ICD-10-PCS; 2020-07-12)
DX: O36.5930 Maternal care for other known or suspected poor fetal growth, third trimester, not applicable or unspecified (principal); O99.324 Drug use complicating childbirth; Z37.0 Single live birth; Z3A.38 38 weeks gestation of pregnancy; O76 Abnormality in fetal heart rate and rhythm complicating labor and delivery; O69.1XX0 Labor and delivery complicated by cord around neck, with compression, not applicable or unspecified; O99.52 Diseases of the respiratory system complicating childbirth; J45.909 Unspecified asthma, uncomplicated; O99.62 Diseases of the digestive system complicating childbirth; K21.9 Gastro-esophageal reflux disease without esophagitis; O71.82 Other specified trauma to perineum and vulva; O70.0 First degree perineal laceration during delivery; F12.90 Cannabis use, unspecified, uncomplicated; Z88.5 Allergy status to narcotic agent; Z87.891 Personal history of nicotine dependence; Z79.899 Other long term (current) drug therapy
CPT/HCPCS: 01960; 36415; 85027; 88307; A9270; C9803; J2590; J2795; J3010; J7121; U0003